=== PATIENT | male | born 1950 | race Caucasian/White ===

== ENCOUNTER 2023-11-05 07:01 | Day surgery (SDC) | payer MEDICARE ==
[~2023-11-05 07:01] MED LIST: ALPRAZolam 0.25 MG TAB PO PRN; ALPRAZolam 0.5 MG TAB PO PRN; ASPIRIN 325 MG TAB PO ONE; NITROGLYCERIN SL TABS 0.4 MG TAB SUBLINGUAL PRN; SODIUM CHLORIDE 0.9% 1,000 ML in EMPTY BAG 1 BAG IV SCH
[2023-11-05] MEDS: SODIUM CHLORIDE 0.9% 1,000 ML IV ONE ×2 (07:30→09:04)
[2023-11-05 07:39] VITALS: RESP 16; TEMP 97.6
[2023-11-05 07:39] LABS: Glucose,Whole Blood 117 mg/dL (70-110)
[2023-11-05 07:44] LABS: Basophils % (A) 0 %; Eosinophils # (A) 0.2 k/uL (0-0.7); Eosinophils % (A) 2 %; HGB 13.5 gm/dL (13.0-17.5); Hypochromasia Slight; Lymphocytes # (A) 1.1 k/uL (1.0-4.8); Lymphocytes % (A) 12 %; MCH 27.8 pg (25.0-35.0); MCHC 32.2 g/dL (31.0-37.0); MCV 86.5 fL (80.0-100.0); Mean Platelet Volume 7.6; Monocytes # (A) 0.7 k/uL (0-1.0); Monocytes % (A) 8 %; Neutrophils # (A) 7.3 k/uL (1.3-7.7); Neutrophils % (A) 77 %; Platelet Count 141 k/uL (150-450); RBC 4.85 m/uL (4.30-5.90); WBC 9.5 k/uL (3.8-10.6)
[2023-11-05 07:51] LABS: African American GFR (CKD) >90 (>60 ml/min/1.73 sqM); Anion Gap 7 mmol/L; Blood Urea Nitrogen 21 mg/dL (9-20); Calcium 9.1 mg/dL (8.4-10.2); Carbon Dioxide 28 mmol/L (22-30); Chloride 105 mmol/L (98-107); Glucose 127 mg/dL (74-99); Non-African American GFR(CKD) >90 (>60 ml/min/1.73 sqM); Potassium 4.2 mmol/L (3.5-5.1); Sodium 140 mmol/L (137-145)
[2023-11-05] MEDS ORDERED: HEPARIN SODIUM 1,000 UN/ML (10ML VL) ONE (08:59)
[2023-11-05] MEDS ORDERED: LIDOCAINE 1% INJ 10MG/ML (20 ML MDV) ONE (08:59)
[2023-11-05] MEDS ORDERED: fentaNYL (PF) 50 MCG/ML 2 ML AMP ONE (08:59)
[2023-11-05] MEDS ORDERED: VERAPAMIL 2.5 MG/ML 2 ML AMP ONE (08:59)
[2023-11-05] MEDS: BENZOCAINE SPRAY 1 CAN MUCOUS MEM ONE (09:00)
[2023-11-05] MEDS: MIDAZOLAM 2 MG/2 ML VIAL IVP ONE (09:04)
[2023-11-05] MEDS: fentaNYL (PF) 50 MCG/ML 2 ML AMP IVP ONE (09:05)
[2023-11-05] MEDS: LIDOCAINE 1% INJ 10MG/ML (20 ML MDV) SQ ONE (09:22)
[2023-11-05] MEDS: VERAPAMIL 2.5 MG/ML 4 ML VIAL INTRAARTER ONE (09:23)
[2023-11-05] MEDS: VERAPAMIL SYRINGE (5 MG/10 ML) INTRAARTER ONE (09:23)
[2023-11-05] MEDS: HEPARIN SODIUM 1,000 UN/ML (10ML VL) IV ONE (09:30)
[2023-11-05] MEDS: IOPAMIDOL-370 100ML BTL INJ ONE (09:59)
[2023-11-05] MEDS ORDERED: RX INFO: IV CONTRAST WAS GIVEN 1 EACH MISC MISCELLANE PRN (10:50)
[2023-11-05] MEDS ORDERED: SODIUM CHLORIDE 0.9% 1,000 ML IV SCH (11:00)
--- NOTE | 2023-11-05 11:27 | ECHOT ---
TRANSESOPHAGEAL ECHOCARDIOGRAM INDICATION: Prosthetic valve stenosis. PROCEDURE NOTE: After obtaining informed consent, transesophageal echocardiogram is performed in left lateral position using an Omniplane probe. Local and IV sedation were obtained with Xylocaine spray, 2 mg of Versed, and 25 mcg of fentanyl. The patient tolerated the procedure well without any obvious immediate complications. Total sedation time was 10 minutes. FINDINGS: Aortic valve is a bioprosthetic valve appears mildly calcified without any significant restriction to leaflet mobility. There was trace aortic regurgitation. By Planimetry, the valve area is around 1.9 sq cm. Ascending aorta appears mildly dilated. Mitral valve appears calcified with mild prolapse of the anterior mitral leaflet with moderate central mitral regurgitation. Left atrium appears enlarged. Right atrium and right ventricle seen within normal limits. There is moderate tricuspid regurgitation noted. Interatrial septum, there is no evidence of ihca-af-pvbdo shunt by color-flow Doppler or lkntc-pu-goxe shunt by agitated saline contrast study. Left ventricle appears enlarged with moderate LV systolic dysfunction with an ejection fraction of 35% to 40%. CONCLUSION: 1. 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 2. Moderate mitral regurgitation. 3. Cardiomyopathy with LV systolic dysfunction with an ejection fraction of 35% to 40%. MMODL / IJN: [id number] /
[2023-11-05 12:46] VITALS: PULSE 72
[2023-11-05 13:30] VITALS: BP 151/83
--- NOTE | 2023-11-05 13:51 | CC ---
CARDIAC CATHETERIZATION REPORT PROCEDURE PERFORMED: Cardiac catheterization. INDICATION: Cardiomyopathy with systolic dysfunction, new onset. PROCEDURE NOTE: After obtaining informed consent, left heart catheterization and coronary angiogram were performed via the right radial artery. Both the left and the right coronary artery were engaged using a size 4 Rosa Isela catheters after trying a 3.5 Rosa Isela catheters first. The patient tolerated the procedure well without any obvious immediate complications. Total sedation time was 36 minutes. Right radial artery access was obtained using Seldinger technique. A 6-[place] sheath was placed. Catheters and wires were floated into the ascending aorta under fluoroscopic guidance. The patient received verapamil and heparin per protocol, and a TR band was used for hemostasis. FINDINGS: 1. Central aortic pressure is 160/70 mm. 2. Left ventriculogram: Left ventriculogram is not performed. 3. Angiographic data: a.Right coronary artery: Right coronary artery is a large dominant vessel, appears calcified with [id number] atherosclerotic plaque without focal stenotic lesions. b.Left main coronary artery is a normal-sized vessel and is free of stenosis, divides into left anterior descending coronary artery and circumflex coronary artery. Circumflex coronary artery is a nondominant vessel and is free of significant disease. LAD and its branches are free of significant stenosis. CONCLUSION: Symq-ct-xllbykjg nonobstructive disease. PLAN: The patient's cardiomyopathy is nonischemic in etiology and valvular heart disease is not bad enough to require intervention at this time and he does not have significant prosthetic valve stenosis. MMODL / IJN: [id number] /
== END 2023-11-05 14:10 | disposition home or self-care (01) ==
LOC: CATHCVL 07:01
PROVIDERS: ATTEND Internal Medicine Cardiovascular Disease
DX: I48.0 Paroxysmal atrial fibrillation (principal); E78.5 Hyperlipidemia, unspecified; I34.0 Nonrheumatic mitral (valve) insufficiency; I42.9 Cardiomyopathy, unspecified; I10 Essential (primary) hypertension; Z79.899 Other long term (current) drug therapy; Z95.2 Presence of prosthetic heart valve; Z79.82 Long term (current) use of aspirin
CPT/HCPCS: 93312; 93320; 93325; 93454; 80048; 85025; C1769; C1894; J2250; J2001; J3010; J1644; Q9967